=== PATIENT | female | born 1995 | race Caucasian/White ===

== ENCOUNTER 2017-02-27 18:05 | Emergency (ER) | payer MEDICAID ==
[2017-02-27 18:19] VITALS: BP 118/81
[2017-02-27] MEDS ORDERED: Amoxicillin/Clavulanate TAB* 875 MG PO ONE (19:45)
--- NOTE | 2017-02-27 19:54 | UC ---
Throat Pain/Nasal Yg HPI - HPI Summary HPI Summary: ONE WEEK OF SNEEZING, COUGH, CONGESTION. NO FEVER. - History of Current Complaint Chief Complaint: UCRespiratory Stated Complaint: UPPER RESPIRATORY FEVER Time Seen by Provider: 02/27/17 18:08 Hx Obtained From: Patient, Family/Sfd[facility] Consultant Hx Last Menstrual Period: 02/23/17 Onset/Duration: Gradual Onset, Lasting Weeks Severity: Moderate Associated Signs & Symptoms: Positive: Hoarseness, Sinus Discomfort, Nasal Discharge, Fever - Allergies/Home Medications Allergies/Adverse Reactions: Allergies Allergy/AdvReac Type Severity Reaction Status Date / Time No Known Allergies Allergy Verified 02/27/17 18:19 Home Medications: Home Medications Dextromethorphan-Phenylephrine [Day Time Multi-Symptom Co] 30 ml PO PRN [History] PMH/Surg Hx/FS Hx/Imm Hx Previously Healthy: Yes - Surgical History Surgical History: None - Family History Known Family History: Positive: Cardiac Disease, Diabetes, Seizure Disorder - Social History Occupation: Student Lives: With Family Alcohol Use: None Substance Use Type: None Smoking Status (MU): Never Smoked Tobacco Household Exposure Type: Cigarettes - Immunization History Vaccination Up to Date: Yes Review of Systems Constitutional: Negative Skin: Negative Eyes: Negative ENT: Ear Ache, Nasal Discharge, Sinus Congestion, Sinus Pain/Tenderness Respiratory: Cough Cardiovascular: Negative Gastrointestinal: Negative Genitourinary: Negative Motor: Negative Neurovascular: Negative Musculoskeletal: Negative Neurological: Negative Psychological: Negative Is Patient Immunocompromised?: No All Other Systems Reviewed And Are Negative: Yes Physical Exam Triage Information Reviewed: Yes Appearance: Well-Appearing, No Pain Distress, Well-Nourished Vital Signs: Initial Vital Signs Temp 97.9 F 02/27/17 18:11 Pulse 90 02/27/17 18:11 Resp 16 02/27/17 18:11 BP 118/81 02/27/17 18:11 Pulse Ox 99 02/27/17 18:11 Vital Signs Reviewed: Yes Eye Exam: Normal ENT: Positive: Hearing grossly normal, TM bulging, TM dull, Other: - BILATERAL CERUMEN IMPACTION Dental Exam: Normal Neck exam: Normal Neck: Positive: Supple, Nontender, No Lymphadenopathy Respiratory Exam: Normal Respiratory: Positive: Chest non-tender, Lungs clear, Normal breath sounds, No respiratory distress Cardiovascular Exam: Normal Cardiovascular: Positive: RRR, No Murmur, Pulses Normal, Brisk Capillary Refill Abdominal Exam: Normal Abdomen Description: Positive: Nontender, No Organomegaly Musculoskeletal Exam: Normal Musculoskeletal: Positive: Strength Intact Neurological Exam: Normal Psychological Exam: Normal Skin Exam: Normal Throat Pain/Nasal Course/Dx - Differential Dx/Diagnosis Differential Diagnosis/HQI/PQRI: Pharyngitis, Sinusitis, Tonsillitis, URI Provider Diagnoses: SINUSITIS; BILATERAL CERUMEN IMPACTION; BILATERAL OTITIS EXTERNA Discharge - Discharge Plan Condition: Stable Disposition: HOME Prescriptions: Amoxicillin/Clavulanate TAB* [Augmentin TAB 875*] 875 mg PO BID #20 tab Ciproflox/Dexameth OTIC.SUSP* [Ciprodex OTIC.SUSP*] 4 drop .SEE ORDER BID #1 btl Patient Education Materials: Sinusitis (ED), Otitis Externa (ED), Cerumen Impaction (ED) Referrals: [facility] [Outside] Non Staff,Doctor [Primary Care Provider] -
== END 2017-02-27 19:54 | disposition home or self-care (01) ==
LOC: UCCORT 18:05
DX: J32.9 Chronic sinusitis, unspecified (principal); H61.23 Impacted cerumen, bilateral; H60.93 Unspecified otitis externa, bilateral
CPT/HCPCS: 99213; A9270-GY; G0463